=== PATIENT | male | born 1955 | race African-American/Black ===

== ENCOUNTER 2016-11-30 13:58 | Emergency (ER) | payer OTHER ==
[~2016-11-30] VITALS: Ht 182.9 cm; Wt 95.3 kg
[~2016-11-30 13:58] MED LIST: CLON2TAB PO; FLUO20CA36 PO; HYDR-548 PO; LORA2TAB95 PO; QUET100T PO
[2016-11-30] MEDS ORDERED: HYDROCODONE/APAP 10-325 MG TABLET PO ONE (14:30)
--- NOTE | 2016-11-30 14:34 | NUR ---
Patient discharged to home in stable conditon. Written and verbal after care instructions given. Patient verbalizes understanding of instructions.PT REQUESTING LORIN WRAP FOR LEFT ANKLE. MD GARCÍA.
[2016-11-30] MEDS ORDERED: HYDROCODONE/APAP 10-325 MG TABLET ONE (14:40)
== END 2016-11-30 14:38 | disposition home or self-care (01) ==
LOC: ER 13:58
DX: Z76.0 Encounter for issue of repeat prescription (principal); G89.29 Other chronic pain; F41.9 Anxiety disorder, unspecified; F32.9 Major depressive disorder, single episode, unspecified; F10.20 Alcohol dependence, uncomplicated; F19.10 Other psychoactive substance abuse, uncomplicated; Z88.6 Allergy status to analgesic agent; Z88.1 Allergy status to other antibiotic agents
CPT/HCPCS: A4663

== ENCOUNTER 2016-12-17 11:03 | Emergency (ER) | payer OTHER ==
[~2016-12-17] VITALS: Ht 182.9 cm; Wt 96.2 kg
[2016-12-17] MEDS: HYDROCODONE/APAP 10-325 MG TABLET PO ONE (11:18)
--- NOTE | 2016-12-17 11:23 | NUR ---
Patient discharged to home in stable conditon. Written and verbal after care instructions given. Patient verbalizes understanding of instructions.pt walks in steady gait. pt not driving
[2016-12-17] MEDS ORDERED: HYDROCODONE/APAP 10-325 MG TABLET ONE (11:27)
== END 2016-12-17 11:25 | disposition home or self-care (01) ==
LOC: ER 11:03
DX: Z76.0 Encounter for issue of repeat prescription (principal); M25.572 Pain in left ankle and joints of left foot; G89.29 Other chronic pain; F41.9 Anxiety disorder, unspecified; F32.9 Major depressive disorder, single episode, unspecified; F10.20 Alcohol dependence, uncomplicated; Z88.6 Allergy status to analgesic agent; Z88.8 Allergy status to other drugs, medicaments and biological substances
CPT/HCPCS: A4663

== ENCOUNTER 2017-01-10 19:43 | Emergency (ER) | payer SELFPAY ==
[~2017-01-10] VITALS: Ht 182.9 cm; Wt 95.3 kg
[2017-01-10] MEDS ORDERED: OXYCODONE/APAP 5-325 MG TABLET PO ONE (20:15)
--- NOTE | 2017-01-10 20:16 | NUR ---
Patient discharged to home in stable conditon. Written and verbal after care instructions given. Patient verbalizes understanding of instructions. Ambulated from ER with stable gait. patient has UBER awaiting outside of the facility. Patient educated not to drive due to recent Narcotic opiate intake. All belongings with patient.
[2017-01-10] MEDS ORDERED: OXYCODONE/APAP 5-325 MG TABLET ONE (20:20)
[2017-01-10 20:22] VITALS: BP 132/70
== END 2017-01-10 20:23 | disposition home or self-care (01) ==
LOC: ER 19:44
DX: M25.572 Pain in left ankle and joints of left foot (principal); G89.29 Other chronic pain; F19.10 Other psychoactive substance abuse, uncomplicated; F41.9 Anxiety disorder, unspecified; F32.9 Major depressive disorder, single episode, unspecified; F10.20 Alcohol dependence, uncomplicated; Z88.6 Allergy status to analgesic agent; Z88.8 Allergy status to other drugs, medicaments and biological substances
CPT/HCPCS: A4663

== ENCOUNTER 2017-01-19 17:10 | Emergency (ER) | payer OTHER ==
[~2017-01-19] VITALS: Ht 182.9 cm; Wt 95.3 kg
--- NOTE | 2017-01-19 19:03 | NUR ---
Patient discharged to home in stable conditon. Written and verbal after care instructions given. Patient verbalizes understanding of instructions.PT WALKS IN STEADY GAIT
--- NOTE | 2017-01-19 19:10 | NUR ---
Patient discharged to home in stable conditon. Written and verbal after care instructions given. Patient verbalizes understanding of instructions.PT NOT DRIVING Addendum: 01/19/17 at 1912 by JULIA PT NOT DRIVING
[2017-01-19] MEDS ORDERED: CLONAZEPAM 0.5 MG TABLET PO ONE (19:15)
[2017-01-19] MEDS ORDERED: CLONAZEPAM 1 MG TABLET ONE (19:19)
== END 2017-01-19 19:13 | disposition home or self-care (01) ==
LOC: ER 17:12
DX: Z76.0 Encounter for issue of repeat prescription (principal); F41.9 Anxiety disorder, unspecified; F32.9 Major depressive disorder, single episode, unspecified; F10.20 Alcohol dependence, uncomplicated; Z88.6 Allergy status to analgesic agent; Z88.8 Allergy status to other drugs, medicaments and biological substances
CPT/HCPCS: A4663

== ENCOUNTER 2017-02-20 15:34 | Emergency (ER) | payer OTHER ==
[~2017-02-20] VITALS: Ht 182.9 cm; Wt 95.2 kg
[2017-02-20] MEDS ORDERED: HYDROCODONE/APAP 10-325 MG TABLET PO ONE (16:00)
--- NOTE | 2017-02-20 16:08 | NUR ---
norco given. pt d/c'd home, aci/rx x2 given. pt ambulated w/o diff/took al belongings.
[2017-02-20 16:09] VITALS: BP 149/72
[2017-02-20] MEDS ORDERED: HYDROCODONE/APAP 10-325 MG TABLET ONE (16:17)
== END 2017-02-20 16:10 | disposition home or self-care (01) ==
LOC: ER 15:34
DX: G89.29 Other chronic pain (principal); M25.572 Pain in left ankle and joints of left foot; F32.9 Major depressive disorder, single episode, unspecified; F41.9 Anxiety disorder, unspecified; F13.10 Sedative, hypnotic or anxiolytic abuse, uncomplicated; F10.10 Alcohol abuse, uncomplicated; Z79.899 Other long term (current) drug therapy
CPT/HCPCS: A4663

== ENCOUNTER → 2017-03-08 | Emergency (ER) | payer OTHER ==
--- NOTE | 2017-03-08 17:40 | NUR ---
PT CALLED IN FOR TRIAGE - WAS NOT IN WAITING ROOM.
== END | disposition left against medical advice (07) ==
LOC: ER 17:24
DX: Z75.3 Unavailability and inaccessibility of health-care facilities (principal)